=== PATIENT | male | born 1955 | race Caucasian/White ===

== ENCOUNTER → 2022-04-08 | Day surgery (SDC) | payer MEDICARE, OTHER, MEDICAID ==
[~2022-04-08] MED LIST: Dextrose 5%-0.45% NaCl 1,000 ML IV SCH; Midazolam 1 MG/ML 2 ML SDV IV ONE; Midazolam 1 MG/ML 2 ML SDV ONE; Sodium Chloride 0.9% 10 ML Syringe FLUSH PRN; Sodium Chloride 0.9% 10 ML Syringe FLUSH SCH; fentaNYL 100 MCG/2 ML SDV IV ONE; fentaNYL 100 MCG/2 ML SDV ONE
== END | disposition home or self-care (01) ==
LOC: DL.ENDO 06:01
PROVIDERS: ATTEND Internal Medicine Gastroenterology
DX: K21.9 Gastro-esophageal reflux disease without esophagitis (principal); E66.09 Other obesity due to excess calories; I25.10 Atherosclerotic heart disease of native coronary artery without angina pectoris; I10 Essential (primary) hypertension; D64.9 Anemia, unspecified; Z68.33 Body mass index [BMI] 33.0-33.9, adult
CPT/HCPCS: 87077; J2250; J3010; J7042

== ENCOUNTER 2022-04-12 06:04 | Day surgery (SDC) | payer MEDICARE, OTHER, MEDICAID ==
[2022-04-12] MEDS ORDERED: fentaNYL 100 MCG/2 ML SDV IV ONE ×3 (06:05→07:04)
[2022-04-12] MEDS ORDERED: Midazolam 1 MG/ML 2 ML SDV IV ONE ×5 (06:05→07:17)
[2022-04-12] MEDS ORDERED: Dextrose 5%-0.45% NaCl 1,000 ML IV SCH (06:15)
[2022-04-12] MEDS ORDERED: Midazolam 1 MG/ML 2 ML SDV ONE (06:44)
[2022-04-12] MEDS ORDERED: fentaNYL 100 MCG/2 ML SDV ONE (06:45)
== END 2022-04-12 09:30 | disposition home or self-care (01) ==
LOC: DL.ENDO 06:04
PROVIDERS: ATTEND Internal Medicine Gastroenterology
DX: Z12.11 Encounter for screening for malignant neoplasm of colon (principal); E66.09 Other obesity due to excess calories; K21.9 Gastro-esophageal reflux disease without esophagitis; I25.10 Atherosclerotic heart disease of native coronary artery without angina pectoris; I10 Essential (primary) hypertension; D64.9 Anemia, unspecified; Z68.33 Body mass index [BMI] 33.0-33.9, adult; Z01.812 Encounter for preprocedural laboratory examination; Z20.822 Contact with and (suspected) exposure to COVID-19
CPT/HCPCS: J2250; J3010; J7042; U0002

== ENCOUNTER 2023-01-25 20:50 | Emergency (ER) | payer MEDICAID, MEDICARE, OTHER ==
[2023-01-25] MEDS ORDERED: Sodium Chloride 0.9% 10 ML Syringe FLUSH PRN (21:02)
[2023-01-25 21:24] LABS: BASOPHILS PERCENT AUTO 0.3 % (0.0-1.0); EOSINOPHILS PERCENT AUTO 1.4 % (1.0-3.0); HEMATOCRIT 36.4 % (40.0-54.0); HEMOGLOBIN 12.3 g/dL (14.0-18.0); LYMPHOCYTES PERCENT AUTO 7.9 % (20.5-50.1); MEAN CORPUSCULAR HEMOGLOBIN 32.3 pg (27.0-34.0); MEAN CORPUSCULAR HGB CONC 33.8 g/dL (33.0-35.0); MEAN CORPUSCULAR VOLUME 95.5 fL (80-100); MONOCYTES PERCENT AUTO 7.5 % (2-8); NEUTROPHILS PERCENT AUTO 82.9 % (42.2-75.2); PLATELET COUNT,PLT 176 10^3/uL (150-450); RED BLOOD CELL COUNT 3.81 10^6/uL (4.6-6.2); WHITE BLOOD CELL COUNT,WBC 10.8 10^3/uL (5.0-10.0)
[2023-01-25 21:42] LABS: PROTHROMBIN TIME 10.1 SEC (9.0-12.0); PTT,PARTIAL THROMBOPLSTIN TIME 23.1 SEC (22.0-34.0)
[2023-01-25 21:51] LABS: LACTIC ACID 0.8 mmol/L (0.4-2.0)
[2023-01-25 21:53] LABS: A/G RATIO 1.3; ALANINE AMINOTRANSFERASE,ALT 56 U/L (16-63); ALBUMIN 3.5 g/dL (3.4-5.0); ALKALINE PHOSPHATASE 86 U/L (46-116); ANION GAP 12.2 mEq/L (7-13); ASPARTATE AMNIOTRANSFERASE,AST 34 U/L (15-37); BILIRUBIN TOTAL 0.3 mg/dL (0.2-1.0); BLOOD UREA NITROGEN,BUN 22 mg/dL (7-18); BUN/CREATININE RATIO 12.3 (No establ ref range); CALCIUM 8.6 mg/dL (8.5-10.1); CARBON DIOXIDE,CO2 28 mmol/L (21-32); CHLORIDE,CL 106 mmol/L (98-107); CREATININE 1.79 mg/dL (0.70-1.30); EST CRCL DRUG DOSING (CG) 38.74 mL/min; ESTIMATED GFR 41 mL/min (>=60); GLUCOSE RANDOM 116 mg/dL (70-99); MAGNESIUM 2.3 mg/dL (1.8-2.4); POTASSIUM,K 4.2 mmol/L (3.5-5.1); PROTEIN TOTAL,TP 6.2 g/dL (6.4-8.2); SODIUM,NA 142 mmol/L (136-145)
[2023-01-25 21:54] LABS: C-REACTIVE PROTEIN < 0.2 mg/dL (0.0-0.9); ETHANOL BLOOD MEDICAL < 3 mg/dL (0)
[2023-01-25] MEDS ORDERED: Sodium Chloride 0.9% 1,000 ML IV ONE (22:06)
[2023-01-25 23:46] LABS: APPEARANCE,URINE CLEAR (CLEAR); BILIRUBIN,URINE NEGATIVE (NEGATIVE); COLOR,URINE YELLOW (YELLOW); GLUCOSE,URINE NEGATIVE (NEGATIVE); KETONES,URINE 15 (NEGATIVE); LEUKOCYTE ESTERASE,URINE SMALL (NEGATIVE); NITRITE,URINE NEGATIVE (NEGATIVE); OCCULT BLOOD,URINE NEGATIVE (NEGATIVE); PROTEIN,URINE 30 (NEGATIVE); UROBILINOGEN,URINE 0.2 mg/dL (0.2-1.0)
[2023-01-25 23:47] LABS: AMPHETAMINES,URINE NEGATIVE (NEGATIVE); BARBITURATES,URINE NEGATIVE (NEGATIVE); BENZODIAZEPINE,URINE NEGATIVE (NEGATIVE); MDMA (ECSTASY), URINE NEGATIVE (NEGATIVE); METHADONE,URINE NEGATIVE (NEGATIVE); METHAMPHETAMINES,URINE NEGATIVE (NEGATIVE); OPIATES,URINE NEGATIVE (NEGATIVE); OXYCODONE,URINE NEGATIVE (NEGATIVE); PHENCYCLIDINE,URINE NEGATIVE (NEGATIVE); TCA,URINE NEGATIVE (NEGATIVE)
[2023-01-25] MEDS ORDERED: Nitrofurantoin Monohydrate/Macrocrystalline 100 MG Cap PO ONE (23:52)
[2023-01-25 23:55] LABS: AMORPHOUS SEDIMENT,URINE FEW /HPF (NOT SEEN); BACTERIA,URINE MODERATE /HPF (0-FEW/HPF); EPITHELIAL CELLS,URINE FEW /HPF (NOT SEEN); MUCUS,URINE FEW /LPF (NOT SEEN); WBC,URINE 50-75 /HPF (0-5/HPF)
== END 2023-01-26 00:05 | disposition home or self-care (01) ==
LOC: DL.ED 20:50
DX: N39.0 Urinary tract infection, site not specified (principal); R79.89 Other specified abnormal findings of blood chemistry; K21.9 Gastro-esophageal reflux disease without esophagitis; E78.00 Pure hypercholesterolemia, unspecified; I10 Essential (primary) hypertension; I25.10 Atherosclerotic heart disease of native coronary artery without angina pectoris; Z95.1 Presence of aortocoronary bypass graft; Z79.82 Long term (current) use of aspirin; Z79.899 Other long term (current) drug therapy
CPT/HCPCS: 36415; 80053; 80305; 80307; 81001; 83605; 83735; 84145; 84484; 85025; 85610; 85730; 86140; 87086; 93005; 93010; 96360; 99284; A9270; J7030; J3490

== ENCOUNTER 2023-05-17 00:58 | Emergency (ER) | payer MEDICARE ==
[2023-05-17 02:02] LABS: APPEARANCE,URINE CLEAR (CLEAR); BILIRUBIN,URINE NEGATIVE (NEGATIVE); COLOR,URINE YELLOW (YELLOW); GLUCOSE,URINE NEGATIVE (NEGATIVE); KETONES,URINE NEGATIVE (NEGATIVE); LEUKOCYTE ESTERASE,URINE NEGATIVE (NEGATIVE); NITRITE,URINE NEGATIVE (NEGATIVE); OCCULT BLOOD,URINE NEGATIVE (NEGATIVE); PROTEIN,URINE NEGATIVE (NEGATIVE); UROBILINOGEN,URINE 0.2 mg/dL (0.2-1.0)
[2023-05-17 02:21] LABS: BASOPHILS PERCENT AUTO 0.8 % (0.0-1.0); EOSINOPHILS PERCENT AUTO 5.6 % (1.0-3.0); HEMATOCRIT 37.3 % (40.0-54.0); HEMOGLOBIN 12.7 g/dL (14.0-18.0); LYMPHOCYTES PERCENT AUTO 23.7 % (20.5-50.1); MEAN CORPUSCULAR HEMOGLOBIN 32.4 pg (27.0-34.0); MEAN CORPUSCULAR VOLUME 95.2 fL (80-100); MONOCYTES PERCENT AUTO 14.1 % (2-8); NEUTROPHILS PERCENT AUTO 55.8 % (42.2-75.2); PLATELET COUNT,PLT 144 10^3/uL (150-450); RED BLOOD CELL COUNT 3.92 10^6/uL (4.6-6.2); WHITE BLOOD CELL COUNT,WBC 6.1 10^3/uL (5.0-10.0)
[2023-05-17 02:39] LABS: A/G RATIO 1.03; ALBUMIN 3.3 g/dL (3.4-5.0); ANION GAP 9.7 mEq/L (7-13); BILIRUBIN TOTAL 0.4 mg/dL (0.2-1.0); BUN/CREATININE RATIO 22.4 (No establ ref range); CALCIUM 8.5 mg/dL (8.5-10.1); CREATININE 1.34 mg/dL (0.70-1.30); EST CRCL DRUG DOSING (CG) 50.01 mL/min; POTASSIUM,K 3.7 mmol/L (3.5-5.1); PROTEIN TOTAL,TP 6.5 g/dL (6.4-8.2)
[2023-05-17 02:56] LABS: CORONAVIRUS COVID-19 NAA NEGATIVE (NEGATIVE); INFLUENZA A NAA NEGATIVE (NEGATIVE); INFLUENZA B NAA NEGATIVE (NEGATIVE); RESPIRATORY SYNCYTIAL VIR NAA NEGATIVE (NEGATIVE)
== END 2023-05-17 04:51 | disposition home or self-care (01) ==
LOC: DL.ED 00:58
DX: R00.1 Bradycardia, unspecified (principal); I12.9 Hypertensive chronic kidney disease with stage 1 through stage 4 chronic kidney disease, or unspecified chronic kidney disease; N18.9 Chronic kidney disease, unspecified; D64.9 Anemia, unspecified; E78.00 Pure hypercholesterolemia, unspecified; I25.10 Atherosclerotic heart disease of native coronary artery without angina pectoris; K21.9 Gastro-esophageal reflux disease without esophagitis; Z79.899 Other long term (current) drug therapy; Z95.1 Presence of aortocoronary bypass graft; Z20.822 Contact with and (suspected) exposure to COVID-19
CPT/HCPCS: 0241U; 36415; 80053; 81003; 83880; 85025; 93005; 93010; 99283; 99285

== ENCOUNTER 2023-06-19 00:34 | Emergency (ER) | payer MEDICARE ==
[2023-06-19] MEDS: Sodium Chloride 0.9% 10 ML Syringe FLUSH PRN ×2 (00:27→00:44)
[~2023-06-19 00:34] MED LIST changes: -Dextrose 5%-0.45% NaCl 1,000 ML IV SCH; -Midazolam 1 MG/ML 2 ML SDV IV ONE; -Midazolam 1 MG/ML 2 ML SDV ONE; +Sodium Chloride 0.9% 1,000 ML IV ONE; -Sodium Chloride 0.9% 10 ML Syringe FLUSH PRN; -Sodium Chloride 0.9% 10 ML Syringe FLUSH SCH; -fentaNYL 100 MCG/2 ML SDV IV ONE; -fentaNYL 100 MCG/2 ML SDV ONE
[2023-06-19 00:49] LABS: HEMATOCRIT 36.1 % (40.0-54.0); HEMOGLOBIN 11.9 g/dL (14.0-18.0); MEAN CORPUSCULAR HEMOGLOBIN 31.8 pg (27.0-34.0); MEAN CORPUSCULAR VOLUME 96.5 fL (80-100); PLATELET COUNT,PLT 116 10^3/uL (150-450); RED BLOOD CELL COUNT 3.74 10^6/uL (4.6-6.2); WHITE BLOOD CELL COUNT,WBC 6.7 10^3/uL (5.0-10.0)
[2023-06-19 00:52] LABS: BASOPHILS PERCENT AUTO 0.3 % (0.0-1.0); EOSINOPHILS PERCENT AUTO 0.4 % (1.0-3.0); LYMPHOCYTES PERCENT AUTO 8.6 % (20.5-50.1); MONOCYTES PERCENT AUTO 22.3 % (2-8); NEUTROPHILS PERCENT AUTO 68.4 % (42.2-75.2)
[2023-06-19 01:08] LABS: LACTIC ACID 0.7 mmol/L (0.4-2.0)
[2023-06-19 01:09] LABS: BAND PERCENT MAN 7 %; LYMPHOCYTES PERCENT MAN 6 % (20-50); MONOCYTES PERCENT MAN 14 % (2-8); SEG NEUTROPHILS PERCENT MAN 73 % (42-75)
[2023-06-19 01:15] LABS: ALBUMIN 3.1 g/dL (3.4-5.0); BILIRUBIN TOTAL 0.5 mg/dL (0.2-1.0); BUN/CREATININE RATIO 15.8 (No establ ref range); C-REACTIVE PROTEIN 3.16 ng/dL (<=0.30); CALCIUM 8.2 mg/dL (8.5-10.1); CREATININE 1.58 mg/dL (0.70-1.30); EST CRCL DRUG DOSING (CG) 51.27 mL/min; PROTEIN TOTAL,TP 6.7 g/dL (6.4-8.2)
[2023-06-19 01:17] LABS: A/G RATIO 0.86
[2023-06-19 01:21] LABS: INFLUENZA A NAA NEGATIVE (NEGATIVE); INFLUENZA B NAA NEGATIVE (NEGATIVE)
[2023-06-19 01:24] LABS: CORONAVIRUS COVID-19 NAA POSITIVE (NEGATIVE)
== END 2023-06-19 01:51 | disposition home or self-care (01) ==
LOC: DL.ED 00:34
DX: S01.81XA Laceration without foreign body of other part of head, initial encounter (principal); U07.1 COVID-19; I25.10 Atherosclerotic heart disease of native coronary artery without angina pectoris; I10 Essential (primary) hypertension; E78.00 Pure hypercholesterolemia, unspecified; K21.9 Gastro-esophageal reflux disease without esophagitis; M19.90 Unspecified osteoarthritis, unspecified site; Z79.899 Other long term (current) drug therapy; Z79.82 Long term (current) use of aspirin; Z20.822 Contact with and (suspected) exposure to COVID-19; W18.30XA Fall on same level, unspecified, initial encounter
CPT/HCPCS: 0240U; 36415; 70450; 71046; 80053; 83605; 83735; 85025; 86140; 87040; 99284; J3490

== ENCOUNTER 2024-02-23 09:15 | Observation (INO) | payer MEDICARE, MEDICAID ==
[2024-02-23 09:38] LABS: BASOPHILS PERCENT AUTO 0.5 % (0.0-1.0); EOSINOPHILS PERCENT AUTO 3.8 % (1.0-3.0); HEMATOCRIT 39.4 % (40.0-54.0); HEMOGLOBIN 13.2 g/dL (14.0-18.0); LYMPHOCYTES PERCENT AUTO 14.2 % (20.5-50.1); MEAN CORPUSCULAR HEMOGLOBIN 31.3 pg (27.0-34.0); MEAN CORPUSCULAR HGB CONC 33.5 g/dL (33.0-35.0); MEAN CORPUSCULAR VOLUME 93.4 fL (80-100); MONOCYTES PERCENT AUTO 10.4 % (2-8); NEUTROPHILS PERCENT AUTO 71.1 % (42.2-75.2); PLATELET COUNT,PLT 178 10^3/uL (150-450); RED BLOOD CELL COUNT 4.22 10^6/uL (4.6-6.2); WHITE BLOOD CELL COUNT,WBC 7.9 10^3/uL (5.0-10.0)
[2024-02-23 10:02] LABS: ALBUMIN 3.6 g/dL (3.4-5.0); ANION GAP 11.6 mEq/L (7-13); BILIRUBIN TOTAL 0.7 mg/dL (0.2-1.0); BUN/CREATININE RATIO 20.7 (No establ ref range); CALCIUM 9.4 mg/dL (8.5-10.1); CREATININE 2.08 mg/dL (0.70-1.30); EST CRCL DRUG DOSING (CG) 35.1 mL/min; MAGNESIUM 2.3 mg/dL (1.8-2.4); POTASSIUM,K 3.6 mmol/L (3.5-5.1); PROTEIN TOTAL,TP 7.2 g/dL (6.4-8.2)
[2024-02-23 10:06] LABS: PROTHROMBIN TIME 10.8 SEC (9.0-12.0)
[2024-02-23] MEDS: Sodium Chloride 0.9% 1,000 ML IV ONE ×2 (10:52)
[2024-02-23] MEDS: Iopamidol 755 Mg/ML 100 ML Bottle IVPUSH ONE (11:11)
[2024-02-23 14:00] LABS: CHOLESTEROL HDL 32 mg/dL (40-59); CHOLESTEROL LDL CALCULATED 92 mg/dL (0-100); CHOLESTEROL TOTAL 150 mg/dL (0-199); HEMOGLOBIN A1C 5.9 % (<5.7); TRIGLYCERIDES 132 mg/dL (0-149)
[2024-02-23] MEDS: Enoxaparin 40 MG/0.4 ML Syringe SUBCUT SCH (15:21)
[2024-02-23] MEDS: traZODone 50 MG Tab PO SCH (20:02)
[2024-02-23] MEDS: Donepezil 10 MG Tab PO SCH (20:15)
[2024-02-24] MEDS: Levothyroxine 50 MCG Tab PO SCH (06:04)
[2024-02-24 06:26] LABS: HEMATOCRIT 33.7 % (40.0-54.0); HEMOGLOBIN 11.2 g/dL (14.0-18.0); MEAN CORPUSCULAR HEMOGLOBIN 31.1 pg (27.0-34.0); MEAN CORPUSCULAR HGB CONC 33.2 g/dL (33.0-35.0); MEAN CORPUSCULAR VOLUME 93.6 fL (80-100); RED BLOOD CELL COUNT 3.6 10^6/uL (4.6-6.2); WHITE BLOOD CELL COUNT,WBC 4.7 10^3/uL (5.0-10.0)
[2024-02-24 06:39] LABS: ANION GAP 11.9 mEq/L (7-13); CALCIUM 8.6 mg/dL (8.5-10.1); CREATININE 1.55 mg/dL (0.70-1.30); EST CRCL DRUG DOSING (CG) 42.65 mL/min; POTASSIUM,K 3.9 mmol/L (3.5-5.1)
[2024-02-24] MEDS: Aspirin 81 MG Tab.Chew PO SCH (08:45)
[2024-02-24] MEDS: Famotidine 20 MG Tab PO SCH (08:45)
[2024-02-24] MEDS: Rosuvastatin 10 MG Tab PO SCH (08:48)
[2024-02-24] MEDS ORDERED: Clopidogrel 75 MG Tab PO SCH (09:00)
[2024-02-24] MEDS ORDERED: UBIDECARENONE 50 MG PO SCH (09:00)
== END 2024-02-24 13:40 | disposition home or self-care (01) ==
LOC: DL.ED 09:15 → DL.MS 12:05 → DL.ED 12:22
PROVIDERS: ADMIT Student in an Organized Health Care Education/Training Program; ATTEND Student in an Organized Health Care Education/Training Program
DX: I63.9 Cerebral infarction, unspecified (principal); N17.9 Acute kidney failure, unspecified; I12.9 Hypertensive chronic kidney disease with stage 1 through stage 4 chronic kidney disease, or unspecified chronic kidney disease; N18.9 Chronic kidney disease, unspecified; G30.9 Alzheimer's disease, unspecified; F02.80 Dementia in other diseases classified elsewhere, unspecified severity, without behavioral disturbance, psychotic disturbance, mood disturbance, and anxiety; E78.00 Pure hypercholesterolemia, unspecified; I25.10 Atherosclerotic heart disease of native coronary artery without angina pectoris; Z79.82 Long term (current) use of aspirin; Z79.899 Other long term (current) drug therapy
CPT/HCPCS: 36415; 70450; 70496; 70498; 70551; 71045; 72125; 72131; 80048; 80053; 80061; 82947; 83036; 83735; 84443; 84484; 85025; 85027; 85610; 92610; 93005; 96360; 96361; 96372; 97161; 97165; 99285; A9270; G0378; J1650; J7030; Q9967; 93010; 99223; 99239